=== PATIENT | female | born 1990 | race Two or more races ===

== ENCOUNTER 2020-07-16 10:27 | Emergency (ER) | payer OTHER ==
[~2020-07-16] VITALS: Ht 160 cm; Wt 81.6 kg
[2020-07-16] MEDS ORDERED: ZINC SULFATE220 M2 PO (16:54)
[2020-07-16] MEDS ORDERED: VITAMIN C WIT1000 MG PO (16:54)
[2020-07-16] MEDS ORDERED: IVERMECTIN3 MG PO (16:54)
[2020-07-16] MEDS ORDERED: MEDROLPACK PO (16:54)
[2020-07-16] MEDS ORDERED: VITAMIN D3-ALO1 EACH PO (16:54)
[2020-07-16] MEDS ORDERED: MELATONIN10 M2 PO (16:54)
[2020-07-16] MEDS ORDERED: ACETAMINOPHEN650 M2 PO (16:54)
[2020-07-16] MEDS ORDERED: AZITHROMYCIN250 MG PO (16:54)
== END 2020-07-16 19:40 | disposition home or self-care (01) ==
LOC: ER 10:27
DX: U07.1 COVID-19 (principal); B96.0 Mycoplasma pneumoniae [M. pneumoniae] as the cause of diseases classified elsewhere; R06.02 Shortness of breath